=== PATIENT | male | born 1970 | race Caucasian/White ===

== ENCOUNTER → 2018-12-31 | Outpatient (CLI) | payer OTHER ==
[~2018-12-31] MED LIST: ALBUTEROL SULFATE 2.5 MG/3 ML NEBU. NEB ONE
--- NOTE | 2018-12-31 13:47 | RAD ---
Chest, 2 views, 12/31/2018: HISTORY: COPD The heart size and pulmonary vascularity are normal. No pulmonary infiltrate is seen. There is no evidence of pleural fluid. A surgical wires projected over the coracoclavicular region on the right. IMPRESSION: No acute cardiopulmonary abnormality is detected. Electronically signed by: Kenny Patton MD (12/31/2018 1:44 PM) [facility]
== END | disposition home or self-care (01) ==
LOC: PF 09:28
PROVIDERS: ATTEND Surgery
DX: J44.9 Chronic obstructive pulmonary disease, unspecified (principal)
CPT/HCPCS: 71046; 94060; J7613

== ENCOUNTER → 2019-08-27 | Outpatient (CLI) | payer OTHER ==
--- NOTE | 2019-08-27 11:05 | RAD ---
MRI Lumbar Spine without contrast History: Bilateral lumbar radiculopathy, back pain Technique: Multiplanar, multi sequential noncontrast MR imaging was performed of the lumbar spine. Comparison: None Findings: There is incorporated interbody fusion hardware L4-5 and L5-S1 with degree of interbody fusion at these levels. There are bilateral pedicle screws at L4 and S1 and on the left at L5. Lumbar vertebral body stature and AP alignment are maintained. Conus terminates near L1-2. L1-L2: This level was not included on the axial images. Neural foramina and spinal canal are adequate. L2-L3: There is mild prominence of posterior epidural fat centrally. Neural foramina are adequate. There is negligible disc osteophyte complex slightly indenting the ventral thecal sac in the far right lateral recess without significant spinal stenosis. L3-L4: There is mild prominence of posterior epidural fat centrally. There is [id number] right facet degenerative change, minimally on the left. There is mild buckling of the ligamentum flavum. Spinal canal is overall adequate. Neural foramina are adequate. L4-L5: Spinal canal and neural foramina are adequate. L5-S1: Spinal canal and the neural foramina are adequate. Impression: 1. There is no significant lumbar spinal stenosis or neural foramina compromise. There is incorporated interbody fusion hardware and L4-5 and L5-S1 at which there is degree of interbody fusion, also bilateral screws bilaterally at L4 and S1 and on the left at L5. Electronically signed by: Teo Chou MD (08/27/2019 11:02 AM) [facility]
== END | disposition home or self-care (01) ==
LOC: MRI 08:14
PROVIDERS: ATTEND Family Medicine
DX: M47.26 Other spondylosis with radiculopathy, lumbar region (principal); Z98.1 Arthrodesis status
CPT/HCPCS: 72148

== ENCOUNTER → 2019-09-04 | Outpatient (CLI) | payer OTHER ==
[~2019-09-04] MED LIST changes: +ACET500T68 PO; -ALBUTEROL SULFATE 2.5 MG/3 ML NEBU. NEB ONE; +CYCL10TA2 PO; +ESCITALOPRAM OXA5 MG PO; +GABA600T7 PO; +LISI1TAB23 PO; +QUET25TA5 PO
--- NOTE | 2019-09-04 16:17 | PAIN ---
DATE OF SERVICE: 09/04/2019 INITIAL CONSULTATION FOR PAIN CLINIC CHIEF COMPLAINT: Low back and bilateral lower extremity pain. HISTORY OF PRESENT ILLNESS: This is a 48-year-old male who presents with history of pain in the low back, bilateral lower extremities for about 10+ years, worse over the past 1-2 months. The patient reports the pain is increasing in the low back, bilateral lower extremities, posterior gluteus, posterior thighs, posterior calves, worse on the right than the left at times and sometimes worse on the left. The patient reports he has no feeling in his feet for the past 1-1/2 months. He has been falling and stumbling frequently. He reports some cramping in the feet and calves as well. Reports he is starting to lose control of bowel with at certain times of the day as well. The patient reports the pain is constant, sharp, stabbing, throbbing, shooting, radiating with numbness and tingling, burning, cramping and aching in the back and legs. The patient rates his disability rate from 0-10, 10 being the worst, was a 9 with family home responsibilities, social activity, occupation, 7 with self-care and 5 with life support activities, 10 with sexual behavior and recreational activities. The patient has had epidural injections in the past prior to his surgery, physical therapy, counseling, chiropractic treatment, exercise, trigger point injections, also had facet joint injections, which were not helpful, this was in [place] about 2 years ago. The patient reports pain awakens him from sleep about 4 times a night every night. He is having some bowel incontinence and effects his ability to walk significantly, he is tripping and both of his feet are having difficulty with dorsiflexion of the ankles over the past 1 and 1/2 months as well. The patient had a lumbar fusion at L4-L5 and L5-S1 with posterior instrumentation that was in 2006. The patient reports his pain was never improved. PAST MEDICAL HISTORY: Significant for COPD, shortness of breath, hypertension, diarrhea, arthritis, PTSD, depression, anxiety, headaches, seizures. PREVIOUS SURGERY: Include lumbar fusion in 2006, fractured clavicle on the right, previous appendectomy and right knee scope. CURRENT MEDICATIONS: Include Tylenol, gabapentin, Flexeril, Lexapro, Seroquel, benazepril and famotidine [id number]. ALLERGIES: The patient has no known drug allergies. FAMILY HISTORY: Significant for no major medical problems or conditions that he lists. SOCIAL HISTORY: The patient drinks about 12 pack of beer over a month. Does not use any illegal, illicit or recreational drugs. Smokes cigarettes about less than a pack a day for the past 30 years. The patient reports he is , has one child who is his son who accompanies him this visit today. Reports he is staying at homeless longterm in [place], [place], currently with his family. REVIEW OF SYSTEMS: The patient's review of systems is positive for those items mentioned in history of present illness. All systems reviewed and otherwise negative. It is complete, full and well documented on the patient's chart. PHYSICAL EXAMINATION: VITAL SIGNS: The patient's blood pressure is 133/87, pulse 94, respirations 16, temperature is 98.5 degrees Fahrenheit, height is 6 feet 1 inch, weight is 217 pounds. GENERAL: The patient is awake, alert, oriented, appropriate, very [facility]. The patient is accompanied by his son. HEENT: Shows normocephalic, atraumatic. Extraocular movements are intact and symmetrical. Oral cavity: Mucous membranes moist and pink. Dentition is intact. NECK: Shows anterior throat supple without palpable lymphadenopathy noted. Swallow reflex is symmetrical. CHEST: Shows normal on inspection. Breath sounds clear to auscultation bilaterally. HEART: Shows S1, S2 clear. No murmurs auscultated. ABDOMEN: Soft, nontender, nondistended. No palpable organomegaly is noted. No rebound or guarding demonstrated. BACK: Shows spine grossly in the midline. Normal appearing thoracic kyphosis, some flattening of lumbar lordotic curvature with well-healed surgical scarring noted. Lumbar paraspinous muscle shows symmetrical on inspection, very firm, though with palpation bilaterally with some moderate tenderness diffusely throughout the upper, middle and lower distribution of paraspinous muscles. Some mild tenderness over the posterior superior iliac spines as well over the sacroiliac region. The patient shows good rotational motion both laterally as well as extension and flexion without significant increase in pain. EXTREMITIES: The patient's lower extremities show deep tendon reflexes 1+ in the patellar and tendo-calcaneus tendons. Motor exam assist with positive foot drop bilaterally, but with good dorsi extension at 5/5 quadriceps and hamstring flexion is 5/5 and equal bilaterally as well. Peripheral pulses are 1+ in the posterior tibia. No peripheral edema is noted. Straight leg raise noted to be positive for bilateral radicular pain at about 45 degrees, decreased with knee flexion. Gaenslen's and Tj's maneuvers are negative bilaterally. The patient is able to stand, but has difficulty walking as he is dragging his feet. He is using his thighs to raise his knees higher to step. He is not using any assistive devices, however, such as canes or walkers to ambulate. SKIN: Shows warm and dry, good turgor. No edema. No sores, rashes or bruising throughout. IMPRESSION: 1. This is a 48-year-old male with long history of low back pain, bilateral lower extremity pain, worse over the past 1 and 1/2 months with some bowel incontinence as well as bilateral foot drop. 2. MRI scan of the lumbar spine showing incorporated interbody fusion hardware at L4-L5 and L5-S1 with a degree of interbody fusion also bilateral screws, bilateral L4 and S1 on the left L5 with no significant lumbar spinal stenosis or neural foraminal compromise dated 08/27/2019. 3. Arthritis. 4. Hypertension. 5. Chronic obstructive pulmonary disease. 6. Posttraumatic stress disorder. 7. Depression. PLAN: Options were discussed with the patient including conservative medical managements, physical therapies and interventional techniques. He has been doing all physical therapies and multiple interventional techniques but he would like to try. We discussed a caudal epidural steroid injection. We will try Medrol Dosepak in the meantime as he needs preauthorization with his insurance provider. Also have him evaluated with a neurosurgeon for bilateral foot drop, which has come up over the past 6 weeks is concerning as this is loss of bowel incontinence to a degree. Arrangement will be made to see his neurosurgeon as soon as available. The patient will follow up once preauthorization is made for lumbar epidural steroid injection, caudal approach for bilateral L5-S1 radiculopathy with a caudal approach is noted. The patient was given Medrol Dosepak in the meantime with instructions, side effects to be aware of discussed. HAKEEM JULES MD DR: MAIDA/arlyn JOB#: [id number] / [id number]
== END | disposition home or self-care (01) ==
LOC: PNCL 13:10
PROVIDERS: ATTEND Anesthesiology
DX: M54.5 Low back pain (principal); M79.604 Pain in right leg; M79.605 Pain in left leg; J44.9 Chronic obstructive pulmonary disease, unspecified; I10 Essential (primary) hypertension; M19.90 Unspecified osteoarthritis, unspecified site; F17.210 Nicotine dependence, cigarettes, uncomplicated; F43.10 Post-traumatic stress disorder, unspecified; Z98.1 Arthrodesis status; X58.XXXA Exposure to other specified factors, initial encounter; Y93.89 Activity, other specified; Y92.89 Other specified places as the place of occurrence of the external cause; Y99.8 Other external cause status
CPT/HCPCS: G0463

== ENCOUNTER → 2019-10-01 | Outpatient (CLI) | payer OTHER ==
[~2019-10-01] MED LIST changes: +IOHEXOL 300 MG/ML 50 ML VIAL. IT ONE; +LIDOCAINE 1% Multi-Dose 20 ML VIAL. ID ONE; +QUET300T5 PO; +RAME8TAB19 PO
--- NOTE | 2019-10-01 12:34 | KCIC ---
PQRS Compliance Statement: One or more of the following individualized dose reduction techniques were utilized for this examination: 1. Automated exposure control 2. Adjustment of the mA and/or kV according to patient size 3. Use of iterative reconstruction technique MYELOGRAM TWO LEVEL W/ INJ, CT LUMBAR SPINE W/CONTRAST, CT THORACIC SPINE W/CONTRAST 10/01/2019 11:00 AM INDICATION: Low back pain with bilateral foot numbness. History of prior surgery. COMPARISON: MRI lumbar spine without contrast 08/27/2019 PROCEDURE: Risks and benefits were discussed with the patient after which informed consent was obtained. Patient was placed prone on the examination table. The L2-L3 interspace was localized under fluoroscopy. Site was marked. Patient was prepped and draped in normal sterile fashion. 1 percent lidocaine was administered for superficial anesthetic effect. A 22-gauge spinal needle was inserted into the thecal sac under fluoroscopic guidance. 10 cc Omnipaque 300 was administered into the thecal sac. Needle was removed and compression applied for hemostasis. Patient tolerated the procedure well. No complications were identified at the time procedure. Fluoroscopy time: 55 seconds Number of images: 1 Subsequently, patient was transported to CT scanner for further imaging. Multiple axial CT images of the thoracic and lumbar spine were obtained without intrathecal contrast. Coronal and sagittal reformats are provided. FINDINGS: Thoracic spine: Alignment of the thoracic spine is normal. Vertebral body heights are maintained. Mild disc height loss is identified at T5-T6, T6-T7, T7-T8, T8-T9 and T9-T10. There is no acute fracture identified. No significant facet arthropathy. Spinous processes are intact. Mild multilevel anterior marginal osteophytosis. Sternum is intact. At T1-T2, there is a central disc protrusion without significant neuroforaminal or spinal canal stenosis. At T5-T6, T6-T7 and T7-T8 there are mild disc bulges minimal impression on the ventral thecal sac. No significant spinal canal stenosis or neuroforaminal stenosis. There is a left central disc protrusion at T8-T9 with mild effacement of the left ventral thecal sac. No cord compression. Mild disc bulge is identified at T9-T10 without significant spinal canal stenosis. Thyroid gland is normal in appearance. Superior paratracheal lymph node measures 5 mm by short axis. Heart size is within normal limits as visualized. Small hiatal hernia. No suspicious solid noncalcified pulmonary nodules are identified. Thoracic aorta is normal in course and caliber. Lumbar spine: Posterior and interbody fusion is identified from L4 through S1. Bilateral pedicle screws are present. There is no lucency surrounding the hardware. A right-sided pedicle screw is not present at L4. Vertebral body heights are maintained. Minimal disc height loss at L3-L4. Conus medullaris terminates at L1. No paraspinal soft tissue abnormality is identified. Abdominal aorta is normal in caliber. No suspicious intracranial findings. Visualized kidneys are normal. No hydronephrosis. L2-L3: Disc is normal in configuration. No significant facet arthropathy. No neuroforaminal or spinal canal stenosis. L3-L4: There is mild disc bulge. There is moderate right and mild left facet arthropathy. No significant ligamentum flavum infolding. Mild right neuroforaminal stenosis. No spinal canal stenosis. L4-L5: This level is fused. There is moderate facet arthropathy. No significant neuroforaminal stenosis. No spinal canal stenosis. Nerve roots appear intact. L5-S1: This level is fused. No residual neuroforaminal or spinal canal stenosis. IMPRESSION: 1. Mild degenerative changes of the thoracic spine, as described in detail above. No significant neuroforaminal or spinal canal stenosis. 2. Posterior and interbody fusion is identified from L4 through S1 without evidence for hardware failure. No residual neuroforaminal or spinal canal stenosis. IMPRESSION: Successful lumbar puncture under fluoroscopic guidance. Electronically signed by: Nicole Estevez MD (10/01/2019 12:31 PM) [facility]
== END ==
LOC: KCIC 10:25
PROVIDERS: ATTEND Neurological Surgery
DX: M54.5 Low back pain (principal)
CPT/HCPCS: 62305; 72129; 72132; Q9967; 72270